=== PATIENT | male | born 2000 | race Caucasian/White ===

== ENCOUNTER → 2021-07-21 08:02 | Outpatient (CLI) | payer BC, SELFPAY ==
--- NOTE | ~2021-07-21 | MR_ITS ---
EXAMINATION: MR hand RT wo con DATE: 07/21/2021 09:04 INDICATION: Right hand pain post baseball injury several months prior. TECHNIQUE: Magnetic resonance imaging (MRI) of the right hand was performed without intravenous contr ast to include the metacarpals and digits which excludes the proximal carpal row and the proximal mar gin of the distal carpal row. Sequences included axial, sagittal and coronal T1-weighted FSE and T2-w eighted FS FSE. COMPARISON: None FINDINGS: Bone alignment is normal. Normal marrow signal throughout with no reactive edema, fracture or patholo gic marrow replacing process. Joint spaces are normal. No erosions, joint effusions or synovitis. The visualized portions of the flexor and extensor tendons of the hand are normal. No tenosynovitis. The collateral ligament complexes at the metacarpophalangeal and interphalangeal joints are normal. The visualized intrinsic musculature of the hand is normal. No abnormal masses or fluid collections ident ified. IMPRESSION: 1. Normal MRI of the right hand. Reviewed, dictated and finalized at location A.
== END ==
PROVIDERS: PCP Family Medicine
DX: M79.641 Pain in right hand (principal); S69.91XA Unspecified injury of right wrist, hand and finger(s), initial encounter; X58.XXXA Exposure to other specified factors, initial encounter
CPT/HCPCS: 73218